=== PATIENT | male | born 1960 | race Caucasian/White ===

== ENCOUNTER → 2017-12-13 07:35 | Outpatient (CLI) | payer OTHER, SELFPAY ==
--- NOTE | 2017-12-13 07:41 | CT_ITS ---
STUDY: CTA CHEST REASON FOR EXAM: Male, 57 years old. History of a dilated aortic root. History of prostate cancer. RADIATION DOSAGE (If Supplied By Facility): CTDIvol = ( 16.66 ) mGy, DLP = ( 702.13 ) mGycm TECHNIQUE: The examination was performed with the intravenous administration of 100 ml of Isovue 370 contrast material. Post-processing of the angiographic images was performed, with multiplanar reformation and 3D reconstruction. Individualized dose optimization techniques were used for this CT. COMPARISON: None. FINDINGS: Normal enhancement of the main pulmonary artery and right and left pulmonary arteries. Normal enhancement of the bilateral peripheral pulmonary arteries. There is no demonstrated pulmonary embolism. There is aneurysmal dilatation of the ascending aorta. The transverse diameter of the ascending aorta measures 48.1 mm's. There is no demonstrated aortic dissection. There are calcifications of the coronary arteries. Normal mediastinum. Normal hilar regions. Normal visualized trachea and bronchi. The lungs are well expanded. Normal pulmonary parenchyma. 4 mm calcified granuloma in the anterior aspect of the right upper lobe. Normal pleura. Normal chest wall structures. There are degenerative changes of thoracic spine. Small hiatal hernia. CT/CTA Chest W/WO Contrast IMPRESSION: Aneurysmal dilatation of the ascending aorta with a transverse dimension of 4.8 cm. Electronically Signed: Leonel Quintana MD at 10:12 EDT Tel [phone], Service support ,
[2017-12-14 07:11] LABS: CREATININE FINGERSTICK 1.11 mg/dL (0.70-1.30); EGFR FINGERSTICK > 60 mL/min (>60)
== END ==
PROVIDERS: Family Provider Nurse Practitioner Family; PCP Nurse Practitioner Family
DX: I77.810 Thoracic aortic ectasia (principal)
CPT/HCPCS: 71275; Q9967

== ENCOUNTER → 2018-01-12 09:57 | Outpatient (CLI) | payer OTHER, SELFPAY ==
[2018-01-12 11:15] LABS: PSA,Total- Diagnostic 7.15 ng/mL (0.0-4.0)
== END ==
PROVIDERS: Family Provider Nurse Practitioner Family; PCP Nurse Practitioner Family; Referring Provider Urology; Visit Provider Urology
DX: R97.20 Elevated prostate specific antigen [PSA] (principal)
CPT/HCPCS: 36415; 84153

== ENCOUNTER → 2018-02-05 15:12 | Outpatient (CLI) | payer OTHER, SELFPAY ==
--- NOTE | 2018-02-05 | IMM_PTH ---
PATIENT: JAYLEN KHAN LOC: [facility] U#:[id number] AGE/SX: 64/M ROOM: RE02/05/[address]: Dr. Ankush Hair MD : 1960 BED: DIS: SPEC #: [id number] RECD: 02/07/18 14:33 STATUS: NIC REQ #: [id number] SAIMA: 02/05/18 00:[address]: Ankush Hair DEPT: IMMUNOHISTOCHEMISTRY RECD BY: Kita Barlow ENTERED: 02/07/18 14:33 SP TYPE: IMMUNO OTHR DR: Liv Caceres, COUNTY ATTORNEY-C Tissues: E - PROSTATE LEFT Procedures: P40 (add) 34BE12 (initial) PHYSICIAN & INSTITUTION [place] [id number] SPECIMEN INFORMATION: Tissue Source: E - Left prostate, mid, core biopsy Clinical Info: Elevated PSA Specimen Number: [id number] Regina CPT code: 18757, 07578 METHODOLOGY: Deparaffinized sections of prefer/formalin-fixed tissue or PAP/DQ stained slides are incubated with monoclonal/polyclonal antibodies/oligonucleotide probes. Localization is made via biotin free immunoperoxidase method. Appropriate controls are performed and reacted as expected. Results on target cell population are indicated in the following table: RESULTS: ANTIBODY / CLONE RESULT Block E P40 (BC28) negative * 34BE12 (34BE12) negative * * Positive in area of HGPIN. These tests were developed and their performance characteristics determined by [facility]. They may not have been cleared or approved by the U.S. Food and Drug Administration. The FDA has determined that such clearance or approval is not necessary. INTERPRETATION: E. Left prostate, mid, core biopsy: A minute focus of adenocarcinoma. Focal high-grade prostatic intraepithelial neoplasia (HGPIN). SJ:miguelito 02/08/18
--- NOTE | 2018-02-05 08:00 | PROSBIL_PTH ---
PATIENT: JAYLEN KHAN LOC: [facility] U#:[id number] AGE/SX: 64/M ROOM: RE02/05/[address]: Dr. Ankush Hair MD : 1960 BED: DIS: SPEC #: [id number] RECD: 02/05/18 15:10 STATUS: NIC MIKE #: [id number] SAIMA: 02/05/18 08:[address]: Ankush Hair DEPT: SURGICAL PATHOLOGY RECD BY: Sai Nelson ENTERED: 02/06/18 10:11 SP TYPE: PROST BX ANKUSH DR: MICA Nesbitt Tissues: A - PROSTATE RIGHT B - PROSTATE RIGHT C - PROSTATE RIGHT D - PROSTATE LEFT E - PROSTATE LEFT F - PROSTATE LEFT Procedures: PROSTATE BX HEADER OPERATION: Prostate biopsy PRE-OP DIAGNOSIS: Elevated PSA TISSUE SUBMITTED: A - Right apex, B - Right mid, C - Right base, D - Left apex, E - Left mid, F - Left base MICROSCOPIC DIAGNOSIS A. Right prostate, apex, core biopsy: Minimal chronic inflammation. B. Right prostate, mid, core biopsy: Benign prostatic tissue. C. Right prostate, base, core biopsy: Adenocarcinoma: Danby grade: 6 (3+3) Cores involved: 1 out of 2 Tissue involved: 10% Greatest tumor length: 3 mm Focal high-grade prostatic intraepithelial neoplasia (HGPIN). D. Left prostate, apex, core biopsy: Minimal chronic inflammation. E. Left prostate, mid, core biopsy: A minute focus of adenocarcinoma: Danby grade: 6 (3+3) Cores involved: 1 out of 2 Tissue involved: <5% Greatest tumor length: <1 mm Focal high-grade prostatic intraepithelial neoplasia (HGPIN). See comment. F. Left prostate, base, core biopsy: Adenocarcinoma: Mart grade: 7 (3+4) Cores involved: 2 out of 2 Tissue involved: 75% Greatest tumor length: 5 mm AM:miguelito 02/07/18 COMMENT E. Immunohistochemistry ([id number]) supports the above diagnosis. Case has been reviewed in consultation with Dr. Arias who concurs with the above diagnosis. IDC:SJ MICROSCOPIC DESCRIPTION Slides are reviewed. GROSS DESCRIPTION A - Received is one container designated prostate, right apex. The specimen consists of two elongated fragments of light abdi-white soft tissue each measuring 1 cm in length and 0.1 cm in diameter. The specimen is totally submitted in one cassette. B - Received is one container designated prostate, right mid. The specimen consists of two elongated fragments of light abdi-white soft tissue each measuring 1 cm in length and 0.1 cm in diameter. The specimen is totally submitted in one cassette. C - Received is one container designated prostate, right base. The specimen consists of two elongated fragments of light abdi-white soft tissue each measuring 1 cm in length and 0.1 cm in diameter. The specimen is totally submitted in one cassette. D - Received is one container designated prostate, left apex. The specimen consists of two elongated fragments of light abdi-white soft tissue each measuring 1 cm in length and 0.1 cm in diameter. The specimen is totally submitted in one cassette. E - Received is one container designated prostate, left mid. The specimen consists of two elongated fragments of light abdi-white soft tissue each measuring 1 cm in length and 0.1 cm in diameter. The specimen is totally submitted in one cassette. F - Received is one container designated prostate, left base. The specimen consists of two elongated fragments of light abdi-white soft tissue each measuring 1 cm in length and 0.1 cm in diameter. The specimen is totally submitted in one cassette. / AM:miguelito 02/06/18 TC:0 [facility]: [id number] [phone]
--- OUTSIDE RECORDS SUMMARY | 2018-05-10 03:36 | XMS RPT_ITS ---
:1960 Author Organization OHIP Care Team Providers Name Role Phone Liv Caceres Attending Unavailable Liv Caceres Primary Care Unavailable Liv Caceres Admitting Unavailable Liv Caceres Attending Unavailable Liv Caceres Primary Care Unavailable Liv Caceres Admitting Unavailable Liv Caceres Attending Unavailable Keysha, Liv L Primary Care Unavailable Laxmi, Nando Admitting Unavailable Laxmi, Nando Attending Unavailable Keysha, Liv L Primary Care Unavailable PERALTA, JAVON SWAPNA Attending Unavailable KEYSHA, LIV L. Primary Care Unavailable PERALTA, JAVON SWAPNA Attending Unavailable KEYSHA, LIV L. Primary Care Unavailable Laxmi, Ramiro Attending Unavailable Laxmi, Rmairo Referring Unavailable Keysha, Liv Primary Care Unavailable Laxmi, Ankush Cochran Attending Unavailable Laxmi, Ramiro Referring Unavailable Keysha, Liv Primary Care Unavailable МАРИЯ MORENO Attending Unavailable МАРИЯ MORENO Referring Unavailable Keysha, Liv Primary Care Unavailable МАРИЯ MORENO Consulting Unavailable Laxmi, Ankush Cochran Attending Unavailable Keysha, Liv Primary Care Unavailable Laxmi, Ramiro Referring Unavailable Laxmi, Ramiro Attending Unavailable Laxmi, Ramiro Referring Unavailable Keysha, Liv Primary Care Unavailable PROBLEMS PROBLEMS DATE TYPE CONDITION / CODE ATTENDING STATUS SOURCE 05/22/2016 Admitting Obstructive sleep PERALTA, [facility] diagnosis apnea (adult) SWAPNA Three (pediatric) / Repository G47.33(ICD-10) 05/22/2016 Admitting Nonrheumatic aortic PERALTA, [facility]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 / Repository I35.1(ICD-10) 05/22/2016 Admitting Thoracic aortic PERALTA, [facility]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 / SWAPNA Three I77.810(ICD-10) Repository 05/22/2016 Admitting Essential (primary) PERALTA, [facility] diagnosis hypertension / SWAPNA Three I10(ICD-10) Repository 05/22/2016 Admitting Ventricular PERALTA, [facility] diagnosis premature SWAPNA Three depolarization / Repository I49.3(ICD-10) PROCEDURES PROCEDURES No Procedure Records FoundRESULTS RESULTS BONE SCAN WHOLE Observed: 03/08/2018 Status: F Source: [place] BODY 9:13 AM [facility] REPOSITORY [facility] Imaging Services [address] [place] [address] Bone Scan Whole Body MR#: [id number] Acct: [id number] Name: JAYLEN KHAN Rep #: [id number] : 1960 M 57 From: Alpesh Chun DO PCP: MICA Nesbitt Status: REG CLI Study: Bone Scan Whole Body Date of Exam: 03/08/18 Exam# [id number] Ordering Dr: Ankush Hair MD CLINICAL: 57-year-old male with reported history of carcinoma of the prostate. WHOLE BODY 99m Tc MDP RADIONUCLIDE BONE SCINTIGRAPHY COMPARISON: CT of the abdomen-pelvis report 03/04/2018 FINDINGS: Following the intravenous administration of 25.9 mCi of 99m Tc MDP, whole body bone images reveal: 1. Increased radiopharmaceutical concentration is focally defined in the acromioclavicular and sternoclavicular compartments of both shoulders, the left wrist, upper cervical spine posteriorly on the left, right knee and right ankle articulation. 2. The remaining skeletal structures are scintigraphically unremarkable with normal-appearing renal images and urinary bladder activity identified. Asymmetric enhanced uptake is visualized in the right lateral tibial plateau most consistent with periostitis. NM/Bone Scan Whole Body IMPRESSION: 1. The increase in radiopharmaceutical concentration identified in the bilateral shoulders, left wrist, cervical spine, right knee and right ankle is commensurate with degenerative arthritis. 2. There is no definitive typical scintigraphic evidence of diffuse axial skeletal metastatic disease on the current examination. Electronically Signed: Alpesh Chun DO at 22:29 EST Tel , Service support , CC: MICA Caceres; Ankush Hair MD Acid Correction Hand: Signed CREATININE FINGERSTICK Collected: 03/04/2018 Status: F Source: [place] 2:18 PM [facility] REPOSITORY TYPE CODE TESTS RESULT OUT OF RANGE REFERENCE UNITS LAB L9100.0210 0.70-1.30 mg/dL Normal CREATININE WB 1.1 LAB L9100.0220 >60 mL/min EGFR WB Normal > 60.0000 Performed By: #### L9100.0200 #### [facility] Laboratory [place] [address] ABDOMEN/PELVIS WITH Observed: 03/04/2018 Status: F Source: [place] CONTRAST 2:07 PM [facility] REPOSITORY [facility] Imaging Services [address] [place] [address] Abdomen/Pelvis WITH Contrast MR#: [id number] Acct: [id number] Name: JAYLEN KHAN Rep #: [id number] : 1960 M 57 From: Brayan Villagomez MD PCP: MICA Nesbitt Status: REG CLI Study: Abdomen/Pelvis WITH Contrast Date of Exam: 03/04/18 Exam# [id number] Ordering Dr: Ankush Hair MD STUDY: CT ABDOMEN AND PELVIS WITH CONTRAST REASON FOR EXAM: Male, 57 years old. Prostate cancer RADIATION DOSAGE (If Supplied By Facility): CTDIvol = ( 16.86 ) mGy, DLP = ( 1364.60 ) mGycm TECHNIQUE: Transaxial images were obtained from the dome of the diaphragm to the symphysis pubis without oral contrast. 100 ml of Isovue 300 contrast was administered. Sagittal and coronal images were reconstructed. Individualized dose optimization techniques were used for this CT. COMPARISON: None. FINDINGS: The visualized lung bases are unremarkable. The visualized portions of the heart are within normal limits. There is 1.3 cm enhancement at the dome of the right lobe of the liver, series 2 image 14/140. Normal gallbladder and extrahepatic biliary system. Normal spleen. Normal pancreas. Normal bilateral adrenal glands. Normal right kidney. There is 2.0 cm cyst of the left kidney. Normal visualized stomach. Normal small intestine. Normal colon. The appendix is visualized and appears normal. Normal abdominal aorta. Normal inferior vena cava. Normal retroperitoneum. Normal urinary bladder. There are prostatic calcifications. There is no free fluid in the abdomen or pelvis. Postoperative changes of the right lower abdominal wall. Mild degenerative change of the spine and sacroiliac joints. There is 1.2 cm sclerosis in the L3 vertebra. CT/Abdomen/Pelvis WITH Contrast IMPRESSION: Nonspecific enhancing lesion in the liver with possible hemangioma or less likely more aggressive lesion. No dilated loops of bowel. Calcifications of the prostate. Electronically Signed: Brayan Villagomez MD at 15:00 EST , Service support , CC: MICA Caceres; Ankush Hair MD Acid Correction Hand: Signed PROSTATE BIOPSY Observed: 02/05/2018 Status: F Source: [place] BILATERAL 8:00 AM [facility] REPOSITORY Patient: JAYLEN KHAN : 1960 (57/M) Acct Num: [id number] Phys: Laxmi MORELOS,Ankush Cochran Unit Num: [id number] Loc: LABSPEC Specimen: [id number] Received: 02/05/181509 Spec Type: PROST BX TISSUES 1 TISSUES: A. PROSTATE RIGHT B. PROSTATE RIGHT C. PROSTATE RIGHT D. PROSTATE LEFT E. PROSTATE LEFT F. PROSTATE LEFT COMMENT E. Immunohistochemistry ([id number]) supports the above diagnosis. Case has been reviewed in consultation with Dr. Arias who concurs with the above diagnosis. IDC:SJ GROSS DESCRIPTION A - Received is one container designated prostate, right apex. The specimen consists of two elongated fragments of light abdi-white soft tissue each measuring 1 cm in length and 0.1 cm in diameter. The specimen is totally submitted in one cassette. B - Received is one container designated prostate, right mid. The specimen consists of two elongated fragments of light abdi-white soft tissue each measuring 1 cm in length and 0.1 cm in diameter. The specimen is totally submitted in one cassette. C - Received is one container designated prostate, right base. The specimen consists of two elongated fragments of light abdi-white soft tissue each measuring 1 cm in length and 0.1 cm in diameter. The specimen is totally submitted in one cassette. D - Received is one container designated prostate, left apex. The specimen consists of two elongated fragments of light abdi-white soft tissue each measuring 1 cm in length and 0.1 cm in diameter. The specimen is totally submitted in one cassette. E - Received is one container designated prostate, left mid. The specimen consists of two elongated fragments of light abdi-white soft tissue each measuring 1 cm in length and 0.1 cm in diameter. The specimen is totally submitted in one cassette. F - Received is one container designated prostate, left base. The specimen consists of two elongated fragments of light abdi-white soft tissue each measuring 1 cm in length and 0.1 cm in diameter. The specimen is totally submitted in one cassette. / AM: 02/06/18 TC:0 CPT: 13050 x6 HEADER OPERATION: Prostate biopsy PRE-OP DIAGNOSIS: Elevated PSA TISSUE SUBMITTED: A - Right apex, B - Right mid, C - Right base, D - Left apex, E - Left mid, F - Left base MICROSCOPIC DESCRIPTION Slides are reviewed. MICROSCOPIC DIAGNOSIS A. Right prostate, apex, core biopsy: Minimal chronic inflammation. B. Right prostate, mid, core biopsy: Benign prostatic tissue. C. Right prostate, base, core biopsy: Adenocarcinoma: Mart grade: 6 (3+3) Cores involved: 1 out of 2 Tissue involved: 10% Greatest tumor length: 3 mm Focal high-grade prostatic intraepithelial neoplasia (HGPIN). D. Left prostate, apex, core biopsy: Minimal chronic inflammation. E. Left prostate, mid, core biopsy: A minute focus of adenocarcinoma: [place] grade: 6 (3+3) Cores involved: 1 out of 2 Tissue involved: <5% Greatest tumor length: <1 mm Focal high-grade prostatic intraepithelial neoplasia (HGPIN). See comment. F. Left prostate, base, core biopsy: Adenocarcinoma: [place] grade: 7 (3+4) Cores involved: 2 out of 2 Tissue involved: 75% Greatest tumor length: 5 mm AM: 02/07/18 PSA RESULTS 1 Date Time Test Result Flag (u) Normal Range 01/12/18 1013 PSA, DIAGNOSTIC 7.15 H 0.0-4.0 ng/mL 1 This test was performed using the TPSA assay method for the Kickstarter chemistry system. Values obtained with different assay methods cannot be used interchangably. When changing PSA assays in the course of monitoring a patient, additional sequential testing should be carried out to confirm baseline values. Signed Myron Arias MD 02/08/18 <signature on file> Performed By: #### PPROSBIL #### [facility] [address] [place], [place], [address] IMMUNOHISTOCHEMISTRY Observed: 02/05/2018 Status: F Source: [place] 12:00 AM [facility] REPOSITORY Patient: JAYLEN KHAN : 1960 (57/M) Acct Num: [id number] Phys: Laxmi MORELOS,Ankush Cochran Unit Num: [id number] Loc: LABSPEC Specimen: [id number] Received: 02/07/181432 Spec Type: IMMUNO TISSUES 1 TISSUES: E. PROSTATE LEFT SPECIMEN INFORMATION: Tissue Source: E - Left prostate, mid, core biopsy Clinical Info: Elevated PSA Specimen Number: [id number] CPT code: 83188, 28015 METHODOLOGY: Deparaffinized sections of prefer/formalin-fixed tissue or PAP/DQ stained slides are incubated with monoclonal/polyclonal antibodies/oligonucleotide probes. Localization is made via biotin free immunoperoxidase method. Appropriate controls are performed and reacted as expected. Results on target cell population are indicated in the following table: RESULTS: ANTIBODY / CLONE RESULT Block E P40 (BC28) negative * 34BE12 (34BE12) negative * * Positive in area of HGPIN. These tests were developed and their performance characteristics determined by [facility]. They may not have been cleared or approved by the U.S. Food and Drug Administration. The FDA has determined that such clearance or approval is not necessary. INTERPRETATION: E. Left prostate, mid, core biopsy: A minute focus of adenocarcinoma. Focal high-grade prostatic intraepithelial neoplasia (HGPIN). SJ:miguelito 02/08/18 PHYSICIAN AND INSTITUTION [address] [address] Signed Myron Arias MD 02/08/18 <signature on file> Performed By: #### PIMM #### [facility] [address] [place] [address]. [place], [place], [id number] PSA,TOTAL- DIAGNOSTIC Collected: 01/12/2018 Status: F Source: [place] 10:13 AM [facility] REPOSITORY TYPE CODE TESTS RESULT OUT OF REFERENCE UNITS RANGE LAB L501.9940 0.0-4.0 ng/mL PSA, High DIAGNOSTIC 7.15 Result Comment: This test was performed using the TPSA assay method for the Kickstarter chemistry system. Values obtained with different assay methods cannot be used interchangably. When changing PSA assays in the course of monitoring a patient, additional sequential testing should be carried out to confirm baseline values. Performed By: #### L501.9940 #### [facility] Laboratory [address] [facility] [place], [address] CTA CHEST W/WO Observed: 12/13/2017 Status: F Source: [place] CONTRAST 7:42 AM [facility] REPOSITORY [facility] Imaging Services [address] [place] [address] CTA Chest W/WO Contrast MR#: [id number] Acct: [id number] Name: CHIKI KHAN Rep #: [id number] : 1960 M 57 From: Leonel Quintana MD PCP: MICA Nesbitt Status: REG CLI Study: CTA Chest W/WO Contrast Date of Exam: 12/13/17 Exam# [id number] Ordering Dr: JAVON PERALTA STUDY: CTA CHEST REASON FOR EXAM: Male, 57 years old. History of a dilated aortic root. History of prostate cancer. RADIATION DOSAGE (If Supplied By Facility): CTDIvol = ( 16.66 ) mGy, DLP = ( 702.13 ) mGycm TECHNIQUE: The examination was performed with the intravenous administration of 100 ml of Isovue 370 contrast material. Post-processing of the angiographic images was performed, with multiplanar reformation and 3D reconstruction. Individualized dose optimization techniques were used for this CT. COMPARISON: None. FINDINGS: Normal enhancement of the main pulmonary artery and right and left pulmonary arteries. Normal enhancement of the bilateral peripheral pulmonary arteries. There is no demonstrated pulmonary embolism. There is aneurysmal dilatation of the ascending aorta. The transverse diameter of the ascending aorta measures 48.1 mm's. There is no demonstrated aortic dissection. There are calcifications of the coronary arteries. Normal mediastinum. Normal hilar regions. Normal visualized trachea and bronchi. The lungs are well expanded. Normal pulmonary parenchyma. 4 mm calcified granuloma in the anterior aspect of the right upper lobe. Normal pleura. Normal chest wall structures. There are degenerative changes of thoracic spine. Small hiatal hernia. CT/CTA Chest W/WO Contrast IMPRESSION: Aneurysmal dilatation of the ascending aorta with a transverse dimension of 4.8 cm. Electronically Signed: Leonel Quintana MD at 10:12 EDT Tel [phone], Service support , CC: MICA Caceres; JAVON PERALTA Acid Correction Hand: Signed PSA TOTAL Collected: 06/16/2017 Status: F Source: MU-ISM 7:30 AM [facility] REPOSITORY TYPE CODE TESTS RESULT OUT OF RANGE REFERENCE UNITS LAB 93311216(LO ng/mL INC) Normal PSA Total 5.52 Result Comment: AGE-SPECIFIC REFERENCE RANGES FOR SERUM PSA REFERENCE RANGE NG/ML AGE ASIANS BLACKS WHITE 40-49 0- 2 0-2 0-2.5 50-59 0- 3 0-4 0-3.5 60-69 0- 4 0-4.5 0-4.5 70-79 0- 5 0-5.5 0-6.5 PSA INCREASES WITH AGE, RACE, AND EJACULATION WITHIN 48 HRS. [facility] VOL24,NO.2, , PG.339 Performed By: #### [id number] #### ROBETR [employer] [address] [place] [address] CBC W/ AUTO DIFF Collected: 05/11/2017 Status: F Source: MU-ISM 6:24 AM [facility] REPOSITORY TYPE CODE TESTS RESULT OUT OF RANGE REFERENCE UNITS LAB 95274343(L 3.6-11.0 E3/mcL OINC) Normal WBC 5.1 LAB 80838404(L 3.90-6.10 E6/mcL OINC) Normal RBC 4.64 LAB 11154515(L 13.5-18.0 G/DL OINC) Normal Hgb 14.9 LAB 87214911(L 42.0-52.0 % OINC) Normal Hct 44.1 LAB 49296981(L 11.5-14.5 % OINC) Normal RDW 13.7 LAB 68318552(L 27.0-31.0 pg OINC) High MCH 32.2 LAB 60303961(L 33.0-37.0 G/DL OINC) Normal MCHC 33.9 LAB 15798915(L 78.0-100.0 fL OINC) Normal MCV 95.0 LAB 55132916(L 7.4-11.0 fL OINC) Normal MPV 9.2 LAB 19421432(L 130-400 E3/mcL OINC) Normal Platelet 224 Performed By: #### [id number] #### ROBERT Mccoy [address] [place] [address] AUTO DIFF Collected: 05/11/2017 Status: F Source: MU-ISM 6:24 AM [facility] REPOSITORY Order Comment: Order Added by Discern Expert. TYPE CODE TESTS RESULT OUT OF RANGE REFERENCE UNITS LAB 96161036(L 37.0-75.0 % OINC) Normal Neutro Auto 37.9 LAB 77699815(L 20.0-55.0 % OINC) Normal Lymph Auto 46.4 LAB 06963627(L 0.0-10.0 % OINC) High [place] Auto 10.8 LAB 43561035(L 0.0-11.0 % OINC) Normal Eos Auto 3.3 LAB 06691125(L 0.0-2.0 % OINC) Normal Basophil Auto 1.6 LAB 56970911(L 1.4-6.5 E3/mcL OINC) Normal Neutro 1.9 Absolute LAB 33863122(L 1.2-3.4 E3/mcL OINC) Normal Lymph Absolute 2.4 LAB 39417118(L 0.0-0.7 E3/mcL OINC) Normal [place] Absolute 0.6 LAB 15882338(L 0.0-0.7 E3/mcL OINC) Normal Eos Absolute 0.2 LAB 72285975(L 0.0-0.2 E3/mcL OINC) Normal Basophil 0.1 Absolute Performed By: #### [id number] #### ROBERT NagelHemabril [address] [place] [address] CMP Collected: 05/11/2017 Status: F Source: MU-ISM 6:24 AM [facility] REPOSITORY TYPE CODE TESTS RESULT OUT OF RANGE REFERENCE UNITS LAB 40391180(L 70-99 mg/dL OINC) High Glucose Lvl 106 LAB 46105552(L 8.4-10.2 mg/dL OINC) Calcium Normal Lvl 9.6 LAB 75514835(L 136-145 mEq/L OINC) Sodium Normal Lvl 141 LAB 21815776(L 3.5-5.1 mEq/L OINC) Normal Potassium Lvl 4.1 LAB 83832529(L 98-107 mEq/L OINC) Chloride Normal 105 LAB 74102267(L 24.0-30.0 mEq/L OINC) CO2 Normal 28.3 LAB 11932294(L 7-18 mg/dL OINC) BUN Normal 18 LAB 5752664(LO 0.6-1.3 mg/dL INC) Normal Creatinine 0.9 LAB 19367999(L 42-121 Int._Unit/ OINC) L Alk Phos Normal 62 LAB 85463610(L 0.2-1.0 mg/dL OINC) Bili Normal Total 0.7 LAB 74722937(L 3.2-5.0 G/DL OINC) Albumin Normal Lvl 4.2 LAB 25760245(L 6.4-8.3 G/DL OINC) Total Normal Protein 7.1 LAB 41165781(L 10-40 Int._Unit/ OINC) L ALT Normal 35 LAB 31090798(L 10-42 Int._Unit/ OINC) L AST Normal 26 LAB 51438723(L 5.4-30.0 ratio OINC) Normal BUN/Creat Ratio 20.0 LAB 01158500(L 2.0-4.0 G/DL OINC) Globulin Normal 2.9 LAB 79967155(L 1.1-1.9 ratio OINC) A/G Normal Ratio 1.4 Performed By: #### [id number] #### ROBERT [employer] [facility] [place] [id number] EGFR Collected: 05/11/2017 Status: F Source: MU-ISM 6:24 AM [facility] REPOSITORY Order Comment: Order added by Discern Expert. TYPE CODE TESTS RESULT OUT OF RANGE REFERENCE UNITS LAB 76231676(LO mL/min/1.73 INC) m2 Normal eGFR >60 LAB 27697425(LO mL/min/1.73 INC) m2 Normal eGFR AA >60 Performed By: #### [id number] #### ROBERT [employer] [address] [id number] LIPID PROFILE Collected: 05/11/2017 Status: F Source: MU-ISM 6:24 AM [facility] REPOSITORY TYPE CODE TESTS RESULT OUT OF RANGE REFERENCE UNITS LAB 33856388(LO 50-200 mg/dL INC) Normal Chol 156 Result Comment: TOTAL CHOLEESTEROL: <200 NORMAL 200 - 239 BORDERLINE HIGH >240 HIGH LAB 44038900(LOINC) >=41 mg/dL Normal HDL 43 LAB 30711392(LOINC) 0-130 mg/dL Normal LDL 81 Result Comment: <100 OPTIMAL 100-129 NEAR / ABOVE OPTIMAL 130-159 BORDERLINE HIGH 160-189 HIGH >190 VERY HIGH CALC LDL NOT VALID WHEN TRIGLYCERIDE IS >400 MG/DL LAB 67318905(LOINC) 35-150 mg/dL High Trig 162 Result Comment: <150 NORMAL 150-199 BORDERLINE HIGH 200-499 HIGH >500 VERY HIGH LAB 96128039(LOINC) Normal VLDL 32 Performed By: #### [id number] #### ROBERT [employer] [address] [id number] ALLERGIES ALLERGIES DATE TYPE / CODE NAME / CODE REACTION SEVERITY SOURCE Drug NO KNOWN [facility] Class/29183 ALLERGIES Three Repository 1003(SNOMED CT) Drug/255378 No Known [facility] 003(SNOMED All[facility]ies [facility]) System Repository Drug/649526 No Known [facility] 003(SNOMED Medication [facility] CT) Allergies System Repository ENCOUNTERS ENCOUNTERS ADMIT/DISCHARGE ACCOUNT NUMBER ADMITTING ENCOUNTER LOCATION SOURCE CLASS 03/12/2018 [id number] [facility]PK[facility] Repository 03/08/2018 [id number] [facility] ding:NM Repository 03/04/2018 [id number] [facility] ding:CT Repository 02/05/2018 [id number] [facility] ding:LABSPEC Repository 01/12/2018 [id number] Ambulatory [facility] ding:LAB.FUT Repository URE 12/19/2017/12/20/19 [id number] Ambulatory Building:[place] [address] [facility] BPKWY Repository 12/13/2017 [id number] Ambulatory [facility] ding:CT Repository 06/16/2017/06/17/[id number] [facility] 18 [facility] ding:SH.Lab Health System Repository 05/11/2017/05/12/[id number] [facility] 18 [facility] ding:SH.Lab Health System Repository 04/30/2017 [id number] [facility] ding:AshFamP Repository rac 04/30/2017/05/01/19 [id number] Liv Caceres [address] ding:AshFamP Repository racRoom: Room 1 PAYERS PAYERS ENCOUNTER GUARANTOR PAYER SUBSCRIBER SOURCE 03/12/2018 [facility] KLINEDOB: Insurance:OSUPolicy KLINEDOB: Three Repository Number: [id number] [facility] [address] [id number] [facility] [address] [place] [address] Date:[address] [place] [address]Beh: (772) [place] [phone] (HP) [address]ZF: 03/12/2018 Secondary [facility] Health Insurance:COMMERCIALPo KLINEDOB: Three Repository licy Number: [id number] [facility] [address] Date:2016-02-[address] [place] [address] [id number] [address] [address]Oko: [phone] [place] [phone] (HP) [id number]: 03/08/2018 JAYLEN Primary [id number] Insurance:CORESOURCEPo KLINEDOB: Community [address] [place] [address] licy Number: [id number] Hospital [address]Zfh: [phone]) [id number] Repository [phone] (HP) Date:2626-84-16[address] [place], HANSA [address]JO: 03/08/2018 Secondary NOT GIVENUNK [place] Insurance:SELF PAY [facility] Number: Effective Repository Date:2018-02-26 03/04/2018 JAYLEN L Primary JAYLEN L [place] [id number] TR Insurance:CORESOURCEPo KLINEDOB: [address] licy Number: [id number] [address]Ymc: [phone] [id number] Repository [phone] (HP) Date:9875-63-26AI [address] HANSA [place] [address]VK: 03/04/2018 Secondary NOT GIVENUNK [place] Insurance:SELF PAY [facility] Number: Effective Repository Date:2018-02-26 02/05/2018 JAYLEN L Primary JAYLEN L [place] [id number] TR Insurance:CORESOURCEPo KLINEDOB: [address] licy Number: [id number] [address]Mrd: [phone]) [id number] Repository [phone] () Date:7170-32-75DG [address] HANSA [place] [address]FY: 02/05/2018 Secondary NOT GIVENUNK [place] Insurance:SELF PAY [facility] Hospital Number: Effective Repository Date:2018-02-05 01/12/2018 JAYLEN L Primary JAYLEN L [place] [id number] TR Insurance:CORESOURCEPo KLINEDOB: [address] licy Number: [id number] Hospital [address]Yha: [phone]) [id number] Repository [phone] (HP) Date:7203-91-27YD [address] [place] [address]IA: 01/12/2018 Secondary NOT GIVENUNK [place] Insurance:SELF PAY [facility] Number: Effective Repository Date:2017-12-26 12/19/2017 JAYLEN Primary [facility] KLINEDOB: Insurance:OSUPolicy KLINEDOB: Three Repository Number: [id number] [facility] [address] [id number] [facility] [place] [address] [address] [place] [address]Uxh: (123) [place], [facility]86 [phone] (HP) [address]BX: 12/13/2017 JAYLEN L Primary JAYLEN [place] [id number] TR Insurance:CORESOURCEPo KLINEDOB: [address] licy Number: [id number] Hospital [address]Wft: [phone]) [id number] Repository [phone] (HP) Date:9293-04-29[address] [place] [address]HH: 12/13/2017 Secondary NOT GIVENUNK [place] Insurance:SELF PAY [facility] Number: Effective Repository Date:2017-12-06 05/11/2017 JAYLEN L Primary JAYLEN Molina KLINEDOB: Insurance:CORESOURCEPo KLINEDOB: [facility] licy Number: Effective [id number] System [facility] Date:2017-05-11 - [facility] Repository [address] [place] [address] [id number] [id number]: Name:CD:[id number] [address] [address]Wgx: 23[address]Mount HANSA [place] (HP) [address]TD: [phone]) (HP) [phone] () 04/30/2017 JAYLEN L Primary Insurance:1500 JAYLEN Molina KLINEDOB: NGS CORESOURCEPolicy KLINEDOB: [facility] Number: Effective [id number] System [address] Date:2017-04-30 - [address] Repository [address] [place] [address] [id number] [address] [place] [address] [id number]: Name:CD:[id number]: BOX [facility] [place] (HP) [address]HM: [phone]) (HP) [phone] (WP) 04/30/2017 JAYLEN Arrington Primary Insurance:1500 JAYLEN DUCKWORTHINEDOB: NGS CORESOURCEPolicy KLINEDOB: [facility] Number: Effective [id number] System [facility] Date:2016-10-24 - [facility] Repository [address] [place] [address] [id number] [address] [place] [address] [id number]: Name:CD:[id number]: BOX [facility] [place] (HP) [phone]: [phone]) (HP) [phone] (WP)
== END ==
PROVIDERS: Family Provider Nurse Practitioner Family; PCP Nurse Practitioner Family; Referring Provider Urology; Visit Provider Urology
DX: R97.20 Elevated prostate specific antigen [PSA] (principal)
CPT/HCPCS: 88305; 88341; 88342; G0416

== ENCOUNTER → 2018-03-04 13:53 | Outpatient (CLI) | payer OTHER, SELFPAY ==
--- NOTE | 2018-03-04 14:06 | CT_ITS ---
STUDY: CT ABDOMEN AND PELVIS WITH CONTRAST REASON FOR EXAM: Male, 57 years old. Prostate cancer RADIATION DOSAGE (If Supplied By Facility): CTDIvol = ( 16.86 ) mGy, DLP = ( 1364.60 ) mGycm TECHNIQUE: Transaxial images were obtained from the dome of the diaphragm to the symphysis pubis without oral contrast. 100 ml of Isovue 300 contrast was administered. Sagittal and coronal images were reconstructed. Individualized dose optimization techniques were used for this CT. COMPARISON: None. FINDINGS: The visualized lung bases are unremarkable. The visualized portions of the heart are within normal limits. There is 1.3 cm enhancement at the dome of the right lobe of the liver, series 2 image 14/140. Normal gallbladder and extrahepatic biliary system. Normal spleen. Normal pancreas. Normal bilateral adrenal glands. Normal right kidney. There is 2.0 cm cyst of the left kidney. Normal visualized stomach. Normal small intestine. Normal colon. The appendix is visualized and appears normal. Normal abdominal aorta. Normal inferior vena cava. Normal retroperitoneum. Normal urinary bladder. There are prostatic calcifications. There is no free fluid in the abdomen or pelvis. Postoperative changes of the right lower abdominal wall. Mild degenerative change of the spine and sacroiliac joints. There is 1.2 cm sclerosis in the L3 vertebra. CT/Abdomen/Pelvis WITH Contrast IMPRESSION: Nonspecific enhancing lesion in the liver with possible hemangioma or less likely more aggressive lesion. No dilated loops of bowel. Calcifications of the prostate. Electronically Signed: Brayan Villagomez MD at 15:00 EST , Service support ,
[2018-03-04 14:26] LABS: CREATININE FINGERSTICK 1.1 mg/dL (0.70-1.30); EGFR FINGERSTICK > 60.0000 mL/min (>60)
== END ==
PROVIDERS: Family Provider Nurse Practitioner Family; PCP Nurse Practitioner Family; Referring Provider Urology; Visit Provider Urology
DX: C61 Malignant neoplasm of prostate (principal); K76.9 Liver disease, unspecified
CPT/HCPCS: 74177; Q9967

== ENCOUNTER → 2018-03-08 09:07 | Outpatient (CLI) | payer OTHER, SELFPAY ==
--- NOTE | 2018-03-08 09:13 | NM_ITS ---
CLINICAL: 57-year-old male with reported history of carcinoma of the prostate. WHOLE BODY 99m Tc MDP RADIONUCLIDE BONE SCINTIGRAPHY COMPARISON: CT of the abdomen-pelvis report 03/04/2018 FINDINGS: Following the intravenous administration of 25.9 mCi of 99m Tc MDP, whole body bone images reveal: 1. Increased radiopharmaceutical concentration is focally defined in the acromioclavicular and sternoclavicular compartments of both shoulders, the left wrist, upper cervical spine posteriorly on the left, right knee and right ankle articulation. 2. The remaining skeletal structures are scintigraphically unremarkable with normal-appearing renal images and urinary bladder activity identified. Asymmetric enhanced uptake is visualized in the right lateral tibial plateau most consistent with periostitis. NM/Bone Scan Whole Body IMPRESSION: 1. The increase in radiopharmaceutical concentration identified in the bilateral shoulders, left wrist, cervical spine, right knee and right ankle is commensurate with degenerative arthritis. 2. There is no definitive typical scintigraphic evidence of diffuse axial skeletal metastatic disease on the current examination. Electronically Signed: Alpesh Chun DO at 22:29 EST Tel , Service support ,
--- OUTSIDE RECORDS SUMMARY | 2018-05-12 16:06 | XMS RPT_ITS ---
[...] Unavailable Keysha, Liv L Primary Care Unavailable EPRALTAJAVON SWAPNA Attending Unavailable KEYSHA, LIV L. Primary Care Unavailable PERALTA, JAVON SWAPNA Attending Unavailable KEYSHA, LIV L. Primary Care Unavailable Laxmi, Ramiro Attending Unavailable Laxmi, Ramiro Referring Unavailable Keysha, Liv Primary Care Unavailable Laxmi, Ramiro Attending Unavailable Laxmi, Ramiro Referring Unavailable Keysha, Liv Primary Care Unavailable Laxmi, Ramiro Attending Unavailable Laxmi, Ramiro Referring Unavailable Keysha, Liv Primary Care Unavailable МАРИЯ MORENO Attending Unavailable МАРИЯ MORENO Referring Unavailable Keysha, Liv Primary Care Unavailable МАРИЯ MORENO Consulting Unavailable Laxmi, Ramiro Attending Unavailable Keysha, Liv Primary Care Unavailable Laxmi, Ramiro Referring Unavailable PROBLEMS PROBLEMS DATE TYPE CONDITION / CODE ATTENDING STATUS SOURCE 05/22/2016 Admitting Obstructive sleep PERALTA, [facility] diagnosis apnea (adult) SWAPNA Three (pediatric) / Repository G47.33(ICD-10) 05/22/2016 Admitting Nonrheumatic aortic PERALTA, [facility]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 / Repository I35.1(ICD-10) 05/22/2016 Admitting Thoracic aortic PERALTA, [facility]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 / SWAPNA Three I77.810(ICD-10) Repository 05/22/2016 Admitting Essential (primary) PERALTA, [facility] diagnosis hypertension / SWAPNA Three I10(ICD-10) Repository 05/22/2016 Admitting Ventricular PERALTA, [facility] diagnosis premature SWAPNA Three depolarization / Repository I49.3(ICD-10) PROCEDURES PROCEDURES No Procedure Records FoundRESULTS RESULTS BONE SCAN WHOLE Observed: 03/08/2018 Status: F Source: [place] BODY 9:13 AM [facility] REPOSITORY [facility] Imaging Services [address] [place] [address] Bone Scan Whole Body MR#: [id number] Acct: [id number] Name: JAYLEN KHAN Rep #: [id number] : 1960 M 57 From: Alpesh Chun DO PCP: MICA Nesbitt Status: REG CLI Study: Bone Scan Whole Body Date of Exam: 03/08/18 Exam# [id number] Ordering Dr: Ankush Hair MD CLINICAL: 57-year-old [...] , CC: MICA Caceres; Ankush Hair MD Sap Business Analyst: Signed CREATININE FINGERSTICK Collected: 03/04/2018 Status: F Source: [place] 2:18 PM [facility] REPOSITORY TYPE CODE TESTS RESULT OUT OF RANGE REFERENCE UNITS LAB L9100.0210 0.70-1.30 mg/dL Normal CREATININE WB 1.1 LAB L9100.0220 >60 mL/min EGFR WB Normal > 60.0000 Performed By: #### L9100.0200 #### [facility] Point [place] [address] ABDOMEN/PELVIS WITH Observed: 03/04/2018 Status: F Source: [place] CONTRAST 2:07 PM [facility] REPOSITORY [facility] Imaging Services [address] [place] [address] Abdomen/Pelvis WITH Contrast MR#: [id number] Acct: [id number] Name: JAYLEN KHAN Rep #: [id number] : 1960 M 57 From: Brayan Villagomez MD PCP: MICA Nesbitt Status: REG CLI Study: Abdomen/Pelvis WITH Contrast Date of Exam: 03/04/18 Exam# [id number] Ordering Dr: Ankush Hair MD STUDY: CT [...] , CC: MICA Caceres; Ankush Hair MD Sap Business Analyst: Signed PROSTATE BIOPSY Observed: 02/05/2018 Status: F Source: [place] BILATERAL 8:00 AM [facility] REPOSITORY Patient: JAYLEN KHAN : 1960 (57/M) Acct Num: [id number] Phys: Laxmi MORELOS,Ankush Cochran Unit Num: [id number] Loc: LABSPEC Specimen: [id number] Received: 02/05/181509 Spec Type: PROST BX TISSUES 1 TISSUES: A. PROSTATE RIGHT B. PROSTATE RIGHT C. PROSTATE RIGHT D. PROSTATE LEFT E. PROSTATE LEFT F. PROSTATE LEFT COMMENT E. Immunohistochemistry ([id number]) supports the above diagnosis. Case has been [...] one cassette. / AM: 02/06/18 TC:0 CPT: 14739 x6 HEADER OPERATION: Prostate biopsy PRE-OP DIAGNOSIS: [...] core biopsy: A minute focus of adenocarcinoma: Williams grade: 6 (3+3) Cores involved: 1 out of 2 Tissue involved: <5% Greatest tumor length: <1 mm Focal high-grade prostatic intraepithelial neoplasia (HGPIN). See comment. F. Left prostate, base, core biopsy: Adenocarcinoma: Williams grade: 7 (3+4) Cores involved: 2 out of 2 Tissue involved: 75% Greatest tumor length: 5 mm AM: 02/07/18 PSA RESULTS 1 Date Time Test Result Flag (u) Normal Range 01/12/18 1013 PSA, DIAGNOSTIC 7.15 H 0.0-4.0 ng/mL 1 This test was performed using the TPSA assay method for the GoYoDeo chemistry system. Values obtained with different assay methods cannot be used interchangably. When changing PSA assays in the course of monitoring a patient, additional sequential testing should be carried out to confirm baseline values. Signed Myron Arias MD 02/08/18 <signature on file> Performed By: #### PPROSBIL #### [facility] [address] [place], [place], [address] IMMUNOHISTOCHEMISTRY Observed: 02/05/2018 Status: F Source: [place] 12:00 AM [facility] REPOSITORY Patient: JAYLEN KHAN : 1960 (57/M) Acct Num: [id number] Phys: Laxmi MORELOS,Ankush Cochran Unit Num: [id number] Loc: LABSPEC Specimen: [id number] Received: 02/07/181432 Spec Type: IMMUNO TISSUES 1 TISSUES: E. PROSTATE LEFT SPECIMEN INFORMATION: Tissue Source: E - Left prostate, mid, core biopsy Clinical Info: Elevated PSA Specimen Number: [id number] CPT code: 22401, 34057 METHODOLOGY: Deparaffinized sections of prefer/formalin-fixed tissue or [...] developed and their performance characteristics determined by [facility]. They may not have been cleared or approved by the U.S. Food and Drug Administration. The FDA has determined that such clearance or approval is not necessary. INTERPRETATION: E. Left prostate, mid, core biopsy: A minute focus of adenocarcinoma. Focal high-grade prostatic intraepithelial neoplasia (HGPIN). SJ:miguelito 02/08/18 PHYSICIAN AND INSTITUTION [address] [address] Signed Myron Arias MD 02/08/18 <signature on file> Performed By: #### PIMM #### [facility] [address] [place] [address]. [place], [place], [id number] PSA,TOTAL- DIAGNOSTIC Collected: 01/12/2018 Status: F Source: [place] 10:13 AM [facility] REPOSITORY TYPE CODE TESTS RESULT OUT OF REFERENCE UNITS RANGE LAB L501.9940 0.0-4.0 ng/mL PSA, High DIAGNOSTIC 7.15 Result Comment: This test was performed using the TPSA assay method for the GoYo[employer] chemistry system. Values obtained with different assay methods cannot be used interchangably. When changing PSA assays in the course of monitoring a patient, additional sequential testing should be carried out to confirm baseline values. Performed By: #### L501.9940 #### [facility] [address] [facility] [place], [address] CTA CHEST W/WO Observed: 12/13/2017 Status: F Source: [place] CONTRAST 7:42 AM [facility] REPOSITORY [facility] Imaging Services [address] [place] [address] CTA Chest W/WO Contrast MR#: [id number] Acct: [id number] Name: CHIKI KHAN Rep #: [id number] : 1960 M 57 From: Leonel Quintana MD PCP: MICA Nesbitt Status: REG CLI Study: CTA Chest W/WO Contrast Date of Exam: 12/13/17 Exam# [id number] Ordering Dr: JAVON PERALTA STUDY: CTA CHEST [...] Leonel Quintana MD at 10:12 EDT Tel [phone], Service support , CC: MICA Caceres; JAVON PERALTA Sap Business Analyst: Signed PSA TOTAL Collected: 06/16/2017 Status: F Source: [place] 7:30 AM [facility] REPOSITORY TYPE CODE TESTS RESULT OUT OF RANGE REFERENCE UNITS LAB 77386397(LO ng/mL INC) Normal PSA Total 5.52 Result Comment: AGE-SPECIFIC REFERENCE RANGES FOR SERUM PSA REFERENCE RANGE NG/ML AGE ASIANS BLACKS WHITE 40-49 0- 2 0-2 0-2.5 50-59 0- 3 0-4 0-3.5 60-69 0- 4 0-4.5 0-4.5 70-79 0- 5 0-5.5 0-6.5 PSA INCREASES WITH AGE, RACE, AND EJACULATION WITHIN 48 HRS. [facility] VOL24,NO.2, , PG.339 Performed By: #### [id number] #### ROBERT [employer] [address] [place] [address] CBC W/ AUTO DIFF Collected: 05/11/2017 Status: F Source: [place] 6:24 AM [facility] REPOSITORY TYPE CODE TESTS RESULT OUT OF RANGE REFERENCE UNITS LAB 47575088(L 3.6-11.0 E3/mcL OINC) Normal WBC 5.1 LAB 00483063(L 3.90-6.10 E6/mcL OINC) Normal RBC 4.64 LAB 42347630(L 13.5-18.0 G/DL OINC) Normal Hgb 14.9 LAB 07789168(L 42.0-52.0 % OINC) Normal Hct 44.1 LAB 49962130(L 11.5-14.5 % OINC) Normal RDW 13.7 LAB 09361503(L 27.0-31.0 pg OINC) High MCH 32.2 LAB 82003574(L 33.0-37.0 G/DL OINC) Normal MCHC 33.9 LAB 51242572(L 78.0-100.0 fL OINC) Normal MCV 95.0 LAB 31674435(L 7.4-11.0 fL OINC) Normal MPV 9.2 LAB 01841837(L 130-400 E3/mcL OINC) Normal Platelet 224 Performed By: #### [id number] #### ROBERT Mccoy [address] [place] [address] AUTO DIFF Collected: 05/11/2017 Status: F Source: [place] 6:24 AM [facility] REPOSITORY Order Comment: Order Added by Discern Expert. TYPE CODE TESTS RESULT OUT OF RANGE REFERENCE UNITS LAB 75931480(L 37.0-75.0 % OINC) Normal Neutro Auto 37.9 LAB 54747874(L 20.0-55.0 % OINC) Normal Lymph Auto 46.4 LAB 86435250(L 0.0-10.0 % OINC) High [place] Auto 10.8 LAB 74076037(L 0.0-11.0 % OINC) Normal Eos Auto 3.3 LAB 78675145(L 0.0-2.0 % OINC) Normal Basophil Auto 1.6 LAB 61186658(L 1.4-6.5 E3/mcL OINC) Normal Neutro 1.9 Absolute LAB 86490012(L 1.2-3.4 E3/mcL OINC) Normal Lymph Absolute 2.4 LAB 73239783(L 0.0-0.7 E3/mcL OINC) Normal [place] Absolute 0.6 LAB 37387020(L 0.0-0.7 E3/mcL OINC) Normal Eos Absolute 0.2 LAB 30757869(L 0.0-0.2 E3/mcL OINC) Normal Basophil 0.1 Absolute Performed By: #### [id number] #### ROBERT [employer] [address] [place] [address] CMP Collected: 05/11/2017 Status: F Source: [place] 6:24 AM [facility] REPOSITORY TYPE CODE TESTS RESULT OUT OF RANGE REFERENCE UNITS LAB 03029952(L 70-99 mg/dL OINC) High Glucose Lvl 106 LAB 62797757(L 8.4-10.2 mg/dL OINC) Calcium Normal Lvl 9.6 LAB 60182878(L 136-145 mEq/L OINC) Sodium Normal Lvl 141 LAB 35444904(L 3.5-5.1 mEq/L OINC) Normal Potassium Lvl 4.1 LAB 70671978(L 98-107 mEq/L OINC) Chloride Normal 105 LAB 49321079(L 24.0-30.0 mEq/L OINC) CO2 Normal 28.3 LAB 81963830(L 7-18 mg/dL OINC) BUN Normal 18 LAB 6192168(LO 0.6-1.3 mg/dL INC) Normal Creatinine 0.9 LAB 22168264(L 42-121 Int._Unit/ OINC) L Alk Phos Normal 62 LAB 59194112(L 0.2-1.0 mg/dL OINC) Bili Normal Total 0.7 LAB 60072118(L 3.2-5.0 G/DL OINC) Albumin Normal Lvl 4.2 LAB 45744671(L 6.4-8.3 G/DL OINC) Total Normal Protein 7.1 LAB 66896825(L 10-40 Int._Unit/ OINC) L ALT Normal 35 LAB 36620148(L 10-42 Int._Unit/ OINC) L AST Normal 26 LAB 75030550(L 5.4-30.0 ratio OINC) Normal BUN/Creat Ratio 20.0 LAB 32344550(L 2.0-4.0 G/DL OINC) Globulin Normal 2.9 LAB 31663253(L 1.1-1.9 ratio OINC) A/G Normal Ratio 1.4 Performed By: #### [id number] #### ROBERT [employer] [facility] [place] 6034505 EGFR Collected: 05/11/2017 Status: F Source: [place] 6:24 AM [facility] REPOSITORY Order Comment: Order added by Discern Expert. TYPE CODE TESTS RESULT OUT OF RANGE REFERENCE UNITS LAB 89169680(LO mL/min/1.73 INC) m2 Normal eGFR >60 LAB 32750325(LO mL/min/1.73 INC) m2 Normal eGFR AA >60 Performed By: #### [id number] #### ROBERT [employer] [address] [place] 6034505 LIPID PROFILE Collected: 05/11/2017 Status: F Source: [place] 6:24 AM [facility] REPOSITORY TYPE CODE TESTS RESULT OUT OF RANGE REFERENCE UNITS LAB 57056743(LO 50-200 mg/dL INC) Normal Chol 156 Result Comment: TOTAL CHOLEESTEROL: <200 NORMAL 200 - 239 BORDERLINE HIGH >240 HIGH LAB 51182687(LOINC) >=41 mg/dL Normal HDL 43 LAB 55543067(LOINC) 0-130 mg/dL Normal LDL 81 Result Comment: <100 OPTIMAL 100-129 NEAR / ABOVE OPTIMAL 130-159 BORDERLINE HIGH 160-189 HIGH >190 VERY HIGH CALC LDL NOT VALID WHEN TRIGLYCERIDE IS >400 MG/DL LAB 82124825(LOINC) 35-150 mg/dL High Trig 162 Result Comment: <150 NORMAL 150-199 BORDERLINE HIGH 200-499 HIGH >500 VERY HIGH LAB 42082238(LOINC) Normal VLDL 32 Performed By: #### [id number] #### ROBERT [employer] [address] [place] 6034505 ALLERGIES ALLERGIES DATE TYPE / CODE NAME / CODE REACTION SEVERITY SOURCE Drug NO KNOWN [facility] Class/92524 ALLERGIES Three Repository 1003(SNOMED CT) Drug/880999 No Known Jehovah'S Witness 003(SNOMED Allergies [facility]) System Repository Drug/450431 No Known Jehovah'S Witness 003(SNOMED Medication [facility] CT) Allergies System Repository ENCOUNTERS ENCOUNTERS ADMIT/DISCHARGE ACCOUNT NUMBER ADMITTING ENCOUNTER LOCATION SOURCE CLASS 03/12/2018 [id number] [facility] BPKWY Repository 03/08/2018 [id number] [facility] ding:NM Repository 03/04/2018 [id number] [facility] ding:CT Repository 02/05/2018 [id number] [facility] ding:LABSPEC Repository 01/12/2018 [id number] Ambulatory [facility] ding:LAB.FUT Repository URE 12/19/2017/12/20/19 [id number] Ambulatory Building:[place] [address] [facility] Three BPKWY Repository 12/13/2017 [id number] Ambulatory [facility] ding:CT Repository 06/16/2017/06/17/19 [id number] Laxmi Ankush [facility] 18 [facility] ding:SH.Lab Health System Repository 05/11/2017/05/12/19 [id number] KeyshaLiv rodriguez [facility] 18 [facility] ding:SH.Lab Health System Repository 04/30/2017 [id number] [facility] ding:AshFamP Repository rac 04/30/2017/05/01/19 [id number] Liv Caceres [address] ding:AshFamP Repository racRoom: Room 1 PAYERS PAYERS ENCOUNTER GUARANTOR PAYER SUBSCRIBER SOURCE 03/12/2018 [facility] KLINEDOB: Insurance:OSUPolicy KLINEDOB: Three Repository Number: [id number] [facility] [id number] [facility] [address] [place] [address] Date:[address] [place] [phone]: (099) [place] [phone] (HP) [address]ZE: 03/12/2018 Secondary [facility] Insurance:COMMERCIALPo KLINEDOB: Three Repository licy Number: [id number] [facility] Date:2016-02-[address] [place] [address] [id number] [address] [address]Kif: [phone] [place] [phone] (HP) 16138GM: 03/08/2018 JAYLEN Primary [facility] TR Insurance:CORESOURCEPo KLINEDOB: Community [address] [place] [address] licy Number: [id number] [address]Oak: [phone]) [id number] Repository [phone] (HP) Date:0982-64-87[address] [place], [place]ANSA [address]RC: 03/08/2018 Secondary NOT GIVENUNK [place] Insurance:SELF PAY [facility] Number: Effective Repository Date:2018-02-26 03/04/2018 JAYLEN L Primary JAYLEN L [place] [id number] TR Insurance:CORESOURCEPo KLINEDOB: [address] licy Number: [id number] Hospital [address]Huy: [phone]) [id number] Repository [phone] (HP) Date:4463-79-36[address] HANSA [place] [address]BO: 03/04/2018 Secondary NOT GIVENUNK [place] Insurance:SELF PAY [facility] Number: Effective Repository Date:2018-02-26 02/05/2018 JAYLEN L Primary JAYLEN L [place] [id number] TR Insurance:CORESOURCEPo KLINEDOB: [address] licy Number: [id number] Hospital [address]Mvx: (419) [id number] Repository [phone] () Date:4412-51-60PK [address] HANSA [place] [address]GX: 02/05/2018 Secondary NOT GIVENUNK [place] Insurance:SELF PAY [facility] Number: Effective Repository Date:2018-02-05 01/12/2018 JAYLEN L Primary JAYLEN L [place] [id number] TR Insurance:CORESOURCEPo KLINEDOB: [address] licy Number: [id number] Hospital [address]Nly: (419) [id number] Repository [phone] (HP) Date:4836-08-52[address]ANSA [place] [address]FF: 01/12/2018 Secondary NOT GIVENUNK [place] Insurance:SELF PAY [facility] Number: Effective Repository Date:2017-12-26 12/19/2017 JAYLEN Primary [facility] KLINEDOB: Insurance:OSUPolicy KLINEDOB: Three Repository Number: [id number] [facility] [id number] [facility] [place] [address] Date:[address] [place] [address] [phone]: [phone]) [place], [facility]42 [phone] (HP) [address]VN: 12/13/2017 JAYLEN L Primary JAYLEN Haynes [id number] TR Insurance:CORESOURCEPo KLINEDOB: [address] licy Number: [id number] Hospital [address]Pqo: (687) [id number] Repository [phone] (HP) Date:7263-58-67CD [address] [place] [address]BF: 12/13/2017 Secondary NOT GIVENUNK [place] Insurance:SELF PAY [facility] Number: Effective Repository Date:2017-12-06 05/11/2017 JAYLEN L Primary JAYLEN Molina KLINEDOB: Insurance:CORESOURCEPo KLINEDOB: [facility] licy Number: Effective [id number] System [facility] Date:2017-05-11 - [facility] Repository [address] [place] [address] [id number] [id number]: Name:CD:[id number] [address] [address]Cbz: [address] HANSA [place] (HP) [address]NA: [phone]) (HP) [phone] () 04/30/2017 JAYLEN L Primary Insurance:1500 JAYLEN Molina KLINEDOB: NGS CORESOURCEPolicy KLINEDOB: [facility] Number: Effective [id number] System [address] Date:2017-04-30 - [address] Repository [address] [place] [address] [id number] [address] [place] [address] [id number]: Name:CD:[id number]: BOX [facility] [place] (HP) [address]YH: [phone]) (HP) [phone] (WP) 04/30/2017 JAYLEN Arrington Primary Insurance:1500 JAYLEN DUCKWORTHINEDOB: NGS CORESOURCEPolicy KLINEDOB: [facility] Number: Effective [id number] System [facility] Date:2016-10-24 - [facility] Repository [address] [place] [address] [id number] [address] [place] [address] [id number]: Name:CD:[id number]: [address] [place] (HP) [address]RS: [phone]) (HP) [phone] (WP)
== END ==
PROVIDERS: Family Provider Nurse Practitioner Family; PCP Nurse Practitioner Family; Referring Provider Urology; Visit Provider Urology
DX: C61 Malignant neoplasm of prostate (principal)
CPT/HCPCS: 78306

== ENCOUNTER 2018-04-10 05:59 | Day surgery (SDC) | payer OTHER, SELFPAY ==
[2018-03-28 11:25] VITALS: BP 135/75; PULSE 65; RESP 18; TEMP 36.8; O2SAT 94; BMI 38.8
--- NOTE | 2018-03-28 11:49 | SDCEKG_ITS ---
Test Reason : Blood Pressure : / mmHG Vent. Rate : 063 BPM Atrial Rate : 063 BPM P-R Int : 200 ms QRS Dur : 076 ms QT Int : 440 ms P-R-T Axes : 038 -02 023 degrees QTc Int : 450 ms Normal sinus rhythm Possible Left atrial enlargement Inferior infarct , age undetermined Abnormal ECG Confirmed by JUAN MORELOS, JOSH ([id number]), staff editor ELIEZER PEPE ([id number]) on 04/01/2018 11:18:16 AM Referred By: Ankuhs Hair Confirmed By:JOSH MARTINEZ MD
[2018-03-28 13:04] LABS: Hematocrit 44.6 % (40-54); Hemoglobin 14.8 g/dl (13.0-16.5); Mean Corp Hgb Conc 33.2 g/gl (32-36); Mean Corpuscular Hgb 31.7 pg (27.0-32.0); Mean Corpuscular Volume 95.5 fL (80-94); Mean Platelet Vol. 10.1 fl (6.2-12.0); Platelet Count 214 K/mm3 (150-450); RBC Distribution Width CV 13.6 % (11.6-14.6); RBC Distribution Width SD 47.6 fl (35.1-43.9); Red Blood Count 4.67 M/mm3 (4.6-6.2)
[2018-03-28 13:05] LABS: Scan Indicated on CBC? Y/N NO
--- NOTE | 2018-04-09 15:48 | PCM.HP.BLA ---
History and Physical Date of Admission: 04/10/18 CC: I have prostate cancer. HPI: JAYLEN KHAN is a 57 year-old male established patient who is here evaluation for treatment of prostate cancer. His prostate cancer was diagnosed 2 weeks ago. His PSA at his time of diagnosis was 7.15. He does not have urinary incontinence. He does not have problems with erectile dysfunction. He has not recently had unwanted weight loss. He is not having pain in new locations. He does have a good appetite. His bowels are moving normally. His most recent PSA is 7.15. Martville score 7=(3+4). Planning for radical prostatectomy ALLERGIES: None MEDICATIONS: Fleet Enema 1 kit OR x1 As instructed. At least an hour before procedure. Aspirin Ec 81 mg tablet, delayed release Losartan Potassium 50 mg tablet Magnesium 400 mg magnesium tablet Metoprolol Succinate 50 mg tablet, extended release 24 hr PSH: Prostate Needle Biopsy - 02/05/2018 Transrectal Biopsy US - 02/05/2018 Vasectomy - 1998 PSH Notes: Wrist surgery 1998. NON- PSH: Elbow Surgery (Unspecified), Right - 1998 PMH: Malignant neoplasm of prostate - 02/25/2018, - 01/14/2018, - 09/28/2016, - 04/19/2016 ? Histology/Primary Site: Adenocarcinoma, no subtype (morphologic abnormality), Malignant neoplasm of prostate ? Martville Score: 7 (3+4) ? Clinical Staging: [id number], Staged on 02/25/2018 ? Diagnostic Confirmation: Positive histology ? Behaviour, Grade: Malignant, primary site, Not applicable ? Laterality: Bilateral ? Provider at the office diagnosed the cancer Elevated prostate specific antigen [PSA] - 12/28/2016 NON- PMH: Essential (primary) hypertension - 04/19/2016 Abdominal aortic aneurysm, without rupture Heart disease, unspecified Immunizations: None FAMILY HISTORY: Heart Attack - Grandfather, Father High Blood Pressure - Runs In Family Notes: Aortic root aneurysm- self. Daughter has Saunders syndrome 1989. SOCIAL HISTORY: Marital Status: Preferred Language: Syriac; Race: White Current Smoking Status: Patient has never smoked. Smoking cessation counseling was provided. Does not use smokeless tobacco. Has never drank. Does not use drugs. REVIEW OF SYSTEMS: Constitutional: Patient denies fever, chills, weight loss, and weight gain. Eyes: Patient denies blurry vision, cataracts, and glaucoma. Ears, Nose, Mouth, Throat: Patient denies hearing loss, sinus infections, and sleep apnea. Cardiovascular: Patient denies chest pains, swollen ankles, irregular heartbeat, and pacemaker/defib. Respiratory: Patient denies shortness of breath, wheezing, oxygen, and cpap machine. Gastrointestinal: Patient denies abdominal pain, diarrhea, constipation, nausea, and vomiting. Genitourinary: Patient denies frequent urination, urinary retention, get up at night to void, leakage of urine, painful urination, blood in the urine, frequent uti's, history of stones, difficulty starting stream, weak stream/scanty, and bedwetting. Musculoskeletal: Patient denies sore muscles, back pain, and gout. Integumentary/Skin: Patient denies skin cancer, chronic itching, and rash. Neurological: Patient denies falling/unsteady, paralysis, and stroke/tia. Hematologic/Lymphatic: Patient denies abnormal bleeding, blood transfusion, swollen lymph nodes, deep venous thrombosis, and pulmonary embolism. VITAL SIGNS: 03/28/2018 10:41 AM Weight 255 lb / 115.67 kg Height 70 in / 177.8 cm BP 140/76 mmHg BMI 36.6 kg/m? - BMI Counseling was provided. MULTI-SYSTEM PHYSICAL EXAMINATION: Constitutional: Well-nourished. No physical deformities. Normally developed. Good grooming. Neck: Neck symmetrical, not swollen. Normal tracheal position. Respiratory: No labored breathing, no use of accessory muscles. Cardiovascular: Normal temperature, normal extremity pulses, no swelling, no varicosities. Lymphatic: No enlargement of neck, axillae, groin. Skin: No paleness, no jaundice, no cyanosis. No lesion, no ulcer, no rash. Neurologic / Psychiatric: Oriented to time, oriented to place, oriented to person. No depression, no anxiety, no agitation. Gastrointestinal: No mass, no tenderness, no rigidity, non obese abdomen. Eyes: Normal conjunctivae. Normal eyelids. Ears, Nose, Mouth, and Throat: Left ear no scars, no lesions, no masses. Right ear no scars, no lesions, no masses. Nose no scars, no lesions, no masses. Normal hearing. Normal lips. Musculoskeletal: Normal gait and station of head and neck. PAST DATA REVIEWED: Source Of History: Patient Records Review: Previous Patient Records Urine Test Review: Urinalysis 01/12/18 06/16/17 12/12/16 09/28/16 03/17/16 PSA Total PSA 7.15 ng/mL 5.52 6.46 8.34 5.55 Notes [facility] [place], [address] This test was performed using the TPSA assay method for the [employer] chemistry system. Values obtained with different assay methods cannot be used interchangably. When changing PSA assays in the course of monitoring a patient, additional sequential testing should be carried out to confirm baseline values. PROCEDURES: Urinalysis - 46455 Dipstick Dipstick Cont'd Specimen: Voided Blood: Neg Appearance: Clear pH: 7.0 Color: Yellow Protein: Neg Glucose: Normal Urobilinogen: Neg Bilirubin: Neg Nitrites: Neg Ketones: Neg Leukocyte Esterase: Neg ASSESSMENT: ICD-10 Details 1 : Malignant neoplasm of prostate - C61 2 Elevated prostate specific antigen [PSA] - R97.20 3 NON-: Encounter for other preprocedural examination - Z01.818 PLAN: Document Letter(s): Created for Patient: Clinical Summary The risks, benefits, and some of the possible complications of the proposed procedure were discussed with the patient at length and in detail including the possibility of performing an open radical retropubic prostatectomy, postoperative urinary urgency, frequency, stress incontinence, urge incontinence, dysuria, hematuria, urinary retention, bladder neck contracture, urethral stricture, dilation of the urethra, postoperative catheterization, placement of a ureteral stent, erectile dysfunction, lack of ejaculation, and others. The possibility of having a positive tissue margin as well as the possible need for further surgical procedures was discussed with the patient. The possible need for postoperative treatments including further surgical procedures, chemotherapy, immunotherapy, radiation therapy, and others was discussed with the patient. The possibility that this operative procedure might not to cure the underlying disease, that micrometastatic disease might already be present, and that this underlying disease might result in the of the patient was discussed. The general risks of the operative procedure and the perioperative period were discussed with the patient at length and in detail including swelling, pain, nausea, vomiting, fever, chills, infection, wound infection, sepsis, renal failure, internal or external bleeding, intraoperative bowel, organ or vascular injuries, postoperative formation of scar tissue, the need for blood transfusions, deep venous thrombosis or blood clots, pulmonary embolus, pneumonia, respiratory failure, heart attack, stroke, and others. All of the patient's questions were answered and he voiced an understanding of these risks, benefits and possible complications. The patient gave fully informed consent to proceed with the procedure. Notes: plan for surgery, pre op visit, pat, nerve monitoring looking at MAR dates, needs at lease 4-5 weeks to recover. Signed by Dimas Hair M.D. on 03/28/18 at 11:07 AM (EST) The information contained in this medical record document is considered private and confidential patient information. This information can only be used for the medical diagnosis and/or medical services that are being provided by the patient's selected caregivers. This information can only be distributed outside of the patient's care if the patient agrees and signs waivers of authorization for this information to be sent to an outside source or route.
[2018-04-10] VITALS (12 sets, daily range): BP systolic 131–152; BP diastolic 67–90; PULSE 62–95; RESP 16–18; TEMP 36–37; O2SAT 92–99; BMI 38.8
--- NOTE | 2018-04-10 | PROST_PTH ---
PATIENT: JAYLEN KHAN LOC: [facility] U#:[id number] AGE/SX: 57/M ROOM: RE04/10/[address]: Dr. Ankush Hair MD : 1960 BED: DIS: 04/11/2018 SPEC #: [id number] RECD: 04/11/18 08:25 STATUS: NIC MIKE #: [id number] SAIMA: 04/10/18 00:[address]: Ankush Hair DEPT: SURGICAL PATHOLOGY RECD BY: Joao Cannon ENTERED: 04/11/18 08:25 SP TYPE: PROSTATE OTHR DR: Liv Caceres, SHUTTLE R[employer]TE VEHICLE OPERATOR-C Tissues: Prostate, NOS Procedures: Surgery Specimen Level HEADER OPERATION: Laparoscopic robotic radical prostatectomy PRE-OP DIAGNOSIS: Prostate cancer TISSUE SUBMITTED: Prostate MICROSCOPIC DIAGNOSIS Prostate, radical prostatectomy: Prostatic adenocarcinoma. See cancer summary below. SJ:miguelito 04/16/18 PROSTATE CANCER (RADICAL) SUMMARY: Procedure - radical prostatectomy Prostate size - 5 cm transversely, 3.5 cm anterior-posteriorly and 3.5 cm craniocaudally Prostate weight - 50.4 gm Histologic type - adenocarcinoma (acinar, not otherwise specified) Histologic grade (Irvona Pattern): Primary pattern - grade 3 Secondary pattern - grade 4 Tertiary pattern - not applicable Total Irvona score - 7 Tumor Quantitation: Proportion (%) of prostate involved by tumor - ~20% Extraprostatic extension - not identified Seminal vesicle invasion - not identified Margins - margins are uninvolved by invasive carcinoma. Treatment effect on carcinoma - no known presurgical therapy. Lymph-Vascular invasion - not identified Perineural invasion - present Regional lymph nodes - no nodes submitted or found. Distant metastasis - not applicable Additional pathologic findings - benign prostatic hyperplasia, glandular and stromal type. Chronic inflammation. PATHOLOGIC STAGE: pT2c pNx Mx The above summary is in compliance with [employer] [place] [employer] (CAP) Cancer Protocols Checklist and [place] Joint Committee on Cancer (AJCC), Staging Manual, 8th Ed. COMMENT The tumor is present predominantly in the left lobe of prostate and involves apical, mid and basal portion of the prostate (1.2 x 0.8 cm, measured microscopically and present in slides 10, 11, 13, 15 and 17). The tumor is present in the right lobe predominantly involving basal portion of the prostate and focally apical portion of the prostate (1.5 x 0.9 cm ,measured microscopically and present in slides 7, 16 and 18). Please make reference to previous specimen ([id number]), right prostate, base and left prostate, mid, and left prostate, base, core biopsy with diagnosis of adenocarcinoma. MICROSCOPIC DESCRIPTION Slides are reviewed. GROSS DESCRIPTION Received in fixative is one container labeled with the patient's name and designated prostate. The specimen consists of a radical prostatectomy specimen consisting of prostate and bilateral seminal vesicles and vas deferens weighing 50.4 gm. The prostate measures 5 cm transversely, 3.5 cm anterior-posteriorly and 3.5 cm craniocaudally. The right seminal vesicle measures 2.5 x 1.5 x 1 cm and right vas deferens measure 2.5 cm in length and 0.6 cm in diameter. The left seminal vesicle measures 3 x 1.5 x 1?cm and left vas deferens measure 2.5 cm in length and 0.5 cm in diameter. The prostate is inked as follows: anterior surface - yellow, posterior surface - blue, right lateral surface - blue, left lateral surface - green. The seminal vesicles are inked as follows: posterior surface bilateral seminal vesicles and vas deferens - black, anterior surface right seminal vesicle and vas deferens - blue, and anterior surface left seminal vesicle and vas deferens - green. Sections do not reveal any obvious mass lesion. Clinical Transformation Specialist sections are submitted in 20 cassettes as follows: 1 - right seminal vesicle and vas deferens, 2 - left seminal vesicle and vas deferens, 3 - apical margin, 4 - bladder base margin, 510 - apical portion prostate, 11-15 - middle portion prostate, 16-20 - basal portion prostate (cassette 20 contains the most basal portion of the prostate. About 90% of the specimen is submitted. Sections will be submitted after additional fixation. / FLAQUITA:miguelito 04/11/18 TC:0 CPT: 98561
[2018-04-10] MEDS: Cefazolin 2 GM in 0.9% Normal Saline 100 ML IV (07:41)
--- NOTE | 2018-04-10 07:49 | DCINST_ITS ---
Discharge Diet: Light diet - advance as tolerated Discharge Activity: May Not Drive, May not drive while taking narcotic pain medications., May Shower Return to work on:: 05/22/18 May shower in (days): 1 Lifting Restrictions: no lifting > 10 lbs for 6 weeks Call your doctor if your incision/area has: Continuous Slow Oozing, Sudden Increased Bleeding, Increased Pain/ Swelling, Increased Redness Call your doctor if you observe: Fever of 101 or Higher, Inability to urinate, Uncontrolled pain Suture Line Care: Avoid Pulling/Pushing, Avoid Pinching/Bending Instructions: Discharge Instructions for Radical Prostatectomy Allergies/Adverse Reactions: Allergies No Known Allergies Allergy (Verified 04/10/18 06:26) Medications to take at Discharge Aspirin E.C. [Ecotrin] 81 mg PO DAILY@0800 03/28/18 Losartan Potassium [Cozaar] 25 mg PO 0600 03/28/18 Losartan Potassium [Cozaar] 50 mg PO 1800 03/28/18 Metoprolol Tartrate [Lopressor (Beta Jake)] 25 mg PO 00 03/28/18 Metoprolol Tartrate [Lopressor (Beta Jake)] 50 mg PO 1800 03/28/18 Multivitamin [Daily Multiple Vitamin] 1 each PO BID 03/28/18 Ciprofloxacin [Cipro] 500 mg PO BID #20 tab 04/10/18 Docusate Sodium [Colace] 100 mg PO BID #20 cap 04/10/18 Hydrocodone/Acetaminophen [Wainwright 5-325 Tablet] 1 ea PO Q4H PRN PRN 7 Days #14 tab 04/10/18 The following prescriptions were given: Hydrocodone/Acetaminophen [Wainwright 5-325 Tablet] 1 ea PO Q4H PRN PRN 7 Days #14 tab PRN Reason: Pain Ciprofloxacin [Cipro] 500 mg PO BID #20 tab Docusate Sodium [Colace] 100 mg PO BID #20 cap Primary Care Physician: Liv Caceres NP-C [Primary Care Provider] - Test Results: Test results from this visit will be discussed in further detail at your follow- up appointment, if applicable. Please Follow Up With: Ankush Hair MD When: please call to make an appointment. Proposed Discharge Date: 04/11/18
[2018-04-10] MEDS: Bupivacaine Mpf 0.5% 30 ML VIAL (11:30)
--- NOTE | 2018-04-10 11:40 | OP.PCM_ITS ---
Report of Operation Date of Procedure: 04/10/18 Pre-Operative Diagnosis: Prostate cancer Post-Operative Diagnosis: Same Surgery/Procedure Performed:: Laparoscopic robotic assisted radical prostatectomy with bilateral nerve sparing, EMG monitoring of the urethral and pelvic sphincter, suture suspension of the urethra. Description of Surgical Findings:: 57-year-old male taken back to the operating room after smooth induction of general anesthesia he was placed supine on the table and then a dorsolithotomy position the abdomen was shaved prepped and draped in usual sterile fashion for approach to the prostate for radical prostatectomy plan to do bilateral nerve sparing he is a fairly large gentleman with a BMI of 38. We undergone all the options of treatment for prostate cancer including observation radiation therapy surgery radioactive seed placement and after consultation with the patient he came back and he wants to proceed with surgery. We plan to do bilateral nerve sparing today. 49-year-old male taken back to the operating room after smooth induction of anesthesia was placed supine on the table placed in dorsolithotomy position for approach to the prostate robotically, the abdomen was shaved and prepped and draped in usual sterile fashion, first made an incision supraumbilically a transverse fashion dissected down to the fascia use a Veress needle to obtain a pneumoperitoneum, then placed my camera trocar right arm trocar left arm trocar Fourth Arm Trocar the air seal port and the press assistant suction trocar. Once all the trochars were placed the robot was docked for started dissection by mobilizing the sigmoid colon off the lateral wall this allowed to be gently retracted out of the pelvis with the with the fourth arm progress I gently pulled the colon out of the pelvis I then identified the right vas deferens dissected down all the way down to the seminal vesicle and vas deferens in the right side and then dissected out the left seminal vesicle left vas deferens and that dissected posterior to the prostate above the nonbilious fascia all the way to the apex once the vas deferens and seminal vesicles were dissected out using pinpoint electrocautery then I went up to the bladder we put the bladder on t raction with the fourth arm and I opened up the space of Retzius and cleaned off the space of Retzius but created the space of Retzius nicely retracting the bladder with the fourth arm. I then went to the prostate because of the severe amount of adipose tissue at the dissect all the fat off the prostate and then identified the top of the prostate the endopelvic fascia in the right side was then incised and the prostate was then peeled off the levator muscles on the right side and in the left endopelvic fascia was incised and the prostate was peeled off the levator muscles the left side we then came to the dorsal vein complex dorsal vein complex was suture ligated and came back to the bladder neck between the prostate and the bladder and then dissected between the bladder and the prostate down to the catheter and the catheter was pulled up and then dissected between the bladder and prostate posteriorly catheter all the way to the seminal vesicles vas deferens. Then the bladder was off the prostate we then went to the pedicle on the left side transected to the pedicle then identified the neurovascular bundle and then teased and dissected the neurovascular bundle off the posterior aspect of the prostate all the way up to the apex without injuring the neurovascular bundle and it completely intact. We then went to the left side we then transected the pedicle of the prostate the left side identified the neurovascular bundle and then dissect the neurovascular bundle on the left side all the way up to the apex on the right side until is completely free all the way up to the right side. We then came across the dorsal vein complex to place an extra stitch in the dorsal vein complex we lowered the pneumoperitoneum to make sure there is no bleeding there was not and then we came to the urethra transected through the urethra and then placed the prostate Endo Catch bag we then did EMG stimulation of the pelvic sidewalls both of these were intact we then completed the suture split suspension of the urethra to the bladder neck with a 30V lock stitch this was run from the posterior aspect of the bladder neck to the urethra running stitches continuously over a catheter once this was completed then the catheter was left in place. We we flushed the catheter and there was no leakage we then placed the fat of the prostate and bladder around the top prostate was extracted through the supraumbilical incision we closed the Aurelio Ahn stitch to close the air seal port we closed the extraction site with 4-0 Vicryls and then placed subcuticular stitches catheter was left in place we left a [address] flush this is flushing easily draining draining nice and clear patient anesthetic is currently being reversed. In the end we did a very nice b ilateral nerve sparing procedure and captured prominent EMG electrical activity on both the right and left side. Type of Anesthesia:: General Drains: ruiz - Admit VTE Documentation VTE Present on Admission: No
[2018-04-10] MEDS: Ketorolac 15 MG/ML Vial IV ×3 (12:18→22:35)
[2018-04-10] MEDS: Ciprofloxacin 400 MG/200 ML BAG 200 MG IV ×2 (13:53→22:35)
[2018-04-10] MEDS: 0.9% Normal Saline 1,000 ML 125 ML IV ×2 (13:53→23:27)
[2018-04-10] MEDS: Multivitamins,Therapeutic Tablet 1 TABLET PO (17:03)
[2018-04-10] MEDS: Metoprolol Tartrate 50 MG Tablet PO (17:04)
[2018-04-10] MEDS: Losartan Potassium 50 MG Tablet PO (17:04)
[2018-04-10] MEDS: Docusate Sodium 100 MG Capsule PO (22:35)
[2018-04-11 01:36] VITALS: O2SAT 87
[2018-04-11 01:37] VITALS: O2SAT 94
[2018-04-11 03:35] VITALS: BP 138/63; PULSE 64; RESP 16; TEMP 36.7; O2SAT 92
[2018-04-11 05:10] VITALS: PULSE 64
[2018-04-11] MEDS: Losartan Potassium 25 MG Tablet PO (05:10)
[2018-04-11] MEDS: Metoprolol Tartrate 25 MG Tablet PO (05:10)
[2018-04-11] MEDS: Ketorolac 15 MG/ML Vial IV ×2 (05:10→10:28)
[2018-04-11 05:46] LABS: Hematocrit 37.6 % (40-54); Hemoglobin 12.3 g/dl (13.0-16.5); Mean Corp Hgb Conc 32.7 g/gl (32-36); Mean Corpuscular Hgb 31.8 pg (27.0-32.0); Mean Corpuscular Volume 97.2 fL (80-94); Platelet Count 189 K/mm3 (150-450); RBC Distribution Width CV 13.8 % (11.6-14.6); RBC Distribution Width SD 47.4 fl (35.1-43.9); Red Blood Count 3.87 M/mm3 (4.6-6.2); White Blood Count 7.1 K/mm3 (4.4-11.0)
[2018-04-11 05:50] LABS: Scan Indicated on CBC? Y/N NO
[2018-04-11 06:02] LABS: Anion Gap 7 (5-15); BUN 15 mg/dL (7-18); BUN/Creat Ratio 15.3 RATIO (10-20); Calcium,Total 7.8 mg/dL (8.5-10.1); Chloride 110 mmol/L (98-107); Creatinine, Serum 0.98 mg/dL (0.70-1.30); EST Glomerular Filtration Rate 83 mL/min (>60); Est Glom Filt Rate - Afr Amer 101 mL/min (>60); Estimated Creatinine Clearance 84.84 ml/min; Glucose 118 mg/dL (74-106); Potassium 3.7 mmol/L (3.5-5.1); Sodium Level 142 mmol/L (136-145)
[2018-04-11 07:21] VITALS: BP 139/80; PULSE 67; RESP 16; TEMP 37; O2SAT 96
[2018-04-11] MEDS: Multivitamins,Therapeutic Tablet 1 TABLET PO (07:25)
[2018-04-11] MEDS: 0.9% Normal Saline 1,000 ML 125 ML IV (07:25)
[2018-04-11] MEDS: Docusate Sodium 100 MG Capsule PO (10:27)
[2018-04-11] MEDS: Pantoprazole Sodium 40 MG Tablet PO (10:27)
[2018-04-11] MEDS: 0.9% NaCl Peripheral Flush Adult/Peds IV (10:31)
== END 2018-04-11 14:17 | disposition home or self-care (01) ==
LOC: SDC 05:59 → AC 06:00 → MS3 08:52
PROVIDERS: Anesthesiology; Family Provider Nurse Practitioner Family; PCP Nurse Practitioner Family; Referring Provider Urology; Visit Provider Urology
PROC: 0VT04ZZ Resection of Prostate, Percutaneous Endoscopic Approach (ICD-10-PCS; CPT 55866; principal; 2018-04-10 07:10)
DX: C61 Malignant neoplasm of prostate (principal); R97.20 Elevated prostate specific antigen [PSA]; I11.9 Hypertensive heart disease without heart failure; I25.10 Atherosclerotic heart disease of native coronary artery without angina pectoris; I71.4 Abdominal aortic aneurysm, without rupture; Z79.82 Long term (current) use of aspirin; Z79.899 Other long term (current) drug therapy
CPT/HCPCS: 51784; 55866; 36415; 80048; 85027; 86850; 86900; 88309; 93005; J7030; J7120; A4216; J0744; J2405

== ENCOUNTER → 2018-09-09 16:00 | Outpatient (CLI) | payer OTHER, SELFPAY ==
[2018-04-10 13:13] VITALS: BMI 38.8
[2018-09-09 17:36] LABS: PSA,Total- Diagnostic < 0.01 ng/mL (0.0-4.0)
== END ==
PROVIDERS: Family Provider Nurse Practitioner Family; PCP Nurse Practitioner Family; Referring Provider Urology; Visit Provider Urology
DX: C61 Malignant neoplasm of prostate (principal)
CPT/HCPCS: 36415; 84153

== ENCOUNTER → 2018-12-09 16:23 | Outpatient (CLI) | payer OTHER, SELFPAY ==
[2018-04-10 13:13] VITALS: BMI 38.8
[2018-12-09 17:46] LABS: PSA,Total- Diagnostic < 0.01 ng/mL (0.0-4.0)
== END ==
PROVIDERS: Family Provider Nurse Practitioner Family; PCP Nurse Practitioner Family; Referring Provider Urology; Visit Provider Urology
DX: C61 Malignant neoplasm of prostate (principal)
CPT/HCPCS: 36415; 84153

== ENCOUNTER → 2019-01-08 12:57 | Outpatient (CLI) | payer OTHER, SELFPAY ==
--- NOTE | 2019-01-08 13:01 | CT_ITS ---
STUDY: CTA CHEST REASON FOR EXAM: Male, 58 years old. Dilated aortic root. RADIATION DOSAGE (If Supplied By Facility): CTDIvol = ( 15.15 ) mGy, DLP = ( 727.97 ) mGycm TECHNIQUE: The examination was performed with the intravenous administration of IV Isovue 370 100. Post-processing of the angiographic images was performed, with multiplanar reformation and 3D reconstruction. Individualized dose optimization techniques were used for this CT. COMPARISON: 18. FINDINGS: Normal enhancement of the main pulmonary artery and right and left pulmonary arteries. Normal enhancement of the bilateral peripheral pulmonary arteries. There is no demonstrated pulmonary embolism. The proximal ascending aorta measures 4.2 x 4.1 cm. Remainder of the thoracic aorta and visualized great vessels are unremarkable. There is no demonstrated aortic dissection. Heart is borderline enlarged. Normal mediastinum. Normal hilar regions. Normal visualized trachea and bronchi. The lungs are well expanded. There is mild posterior dependent atelectasis, otherwise normal pulmonary parenchyma. Normal pleura. Normal chest wall structures. There are degenerative changes of thoracic spine. Upper abdomen: There is nonspecific bilateral perinephric stranding. There is diffuse fatty liver. Remainder of the visualized pancreas, gallbladder, spleen and adrenal glands are normal. CT/CTA Chest W/WO Contrast IMPRESSION: Mild aneurysmal dilatation of the ascending aorta measuring up to 4.2 x 4.1 cm. Otherwise negative CTA chest examination, without a demonstrated pulmonary embolism or arterial dissection. Mild bilateral lower lobe atelectasis, otherwise no acute process identified. Electronically Signed: Kayla Banks MD at 6:18 EST , Service support ,
[2019-01-08 16:55] LABS: Hematocrit 41.8 % (40-54); Hemoglobin 13.7 g/dL (13.0-16.5); Mean Corp Hgb Conc 32.8 g/dL (32-36); Mean Corpuscular Hgb 31.9 pg (27.0-32.0); Mean Corpuscular Volume 97.2 fL (80-94); Mean Platelet Vol. 10.3 fl (6.2-12.0); Platelet Count 225 K/mm3 (150-450); RBC Distribution Width CV 13.8 % (11.6-14.6); RBC Distribution Width SD 49.5 fl (35.1-43.9); White Blood Count 4.2 K/mm3 (4.4-11.0)
== END ==
PROVIDERS: Family Provider Nurse Practitioner Family; PCP Nurse Practitioner Family
DX: I77.810 Thoracic aortic ectasia (principal); R89.9 Unspecified abnormal finding in specimens from other organs, systems and tissues
CPT/HCPCS: 36415; 71275; 85027; Q9967

== ENCOUNTER → 2019-08-08 14:40 | Outpatient (CLI) | payer OTHER, SELFPAY ==
[2018-04-10 13:13] VITALS: BMI 38.8
[2019-08-08 15:59] LABS: PSA,Total- Diagnostic < 0.01 ng/mL (0.0-4.0)
== END ==
PROVIDERS: PCP Family Medicine; Referring Provider Urology; Visit Provider Urology
DX: Z85.46 Personal history of malignant neoplasm of prostate (principal)
CPT/HCPCS: 36415; 84153

== ENCOUNTER 2021-05-10 15:11 | Outpatient (CLI) | payer OTHER, SELFPAY ==
[2021-05-10 16:16] LABS: PSA,Total- Diagnostic < 0.01 ng/mL (0.0-4.0)
== END 2021-05-10 23:59 | disposition home or self-care (01) ==
PROVIDERS: PCP Family Medicine; Visit Provider Urology
DX: R97.20 Elevated prostate specific antigen [PSA] (principal)
CPT/HCPCS: 36415; 84153

== ENCOUNTER → 2022-05-29 | Outpatient (CLI) | payer OTHER, SELFPAY ==
[2022-05-29 16:26] LABS: PSA,Total- Diagnostic < 0.01 ng/mL (0.0-4.0)
== END | disposition home or self-care (01) ==
LOC: LAB 15:17
PROVIDERS: PCP Family Medicine; Referring Provider Urology; Visit Provider Urology
DX: C61 Malignant neoplasm of prostate (principal)
CPT/HCPCS: 36415; 84153